=== PATIENT | female | born 1985 | race Caucasian/White ===

== ENCOUNTER → 2018-12-29 | Outpatient (CLI) | payer OTHER ==
--- NOTE | 2018-12-29 10:15 | USB ---
Reason for exam: clinical finding. History: Family history of breast cancer in maternal grandmother. Indicated problem(s): palpable abnormality in the right breast. Physical Findings: Nurse Summary: felt lump 1 week ago (nurse kp). US Breast RT Right complete breast ultrasound includes all four quadrants, the retroareolar region and axilla. Finding demonstrates a 6mm lymph node at the axilla tail. These results were verbally communicated with the patient and result sheet given to the patient on 12/29/18. ASSESSMENT: Benign, BI-RAD 2 RECOMMENDATION: Clinical management of the right breast. Manage patient on a clinical basis.
== END | disposition home or self-care (01) ==
LOC: RADUSWWP 09:24
PROVIDERS: ATTEND Pediatrics
DX: N64.4 Mastodynia (principal)

== ENCOUNTER 2019-12-15 04:47 | Emergency (ER) | payer OTHER ==
[2019-12-15 04:59] VITALS: RESP 18
[2019-12-15] MEDS ORDERED: SODIUM CHLORIDE 0.9% 500 ML 500 ML IV ONE (05:19)
--- NOTE | 2019-12-15 05:24 | ED ---
Female Urogenital HPI - General Source: patient, EMS Mode of arrival: EMS Limitations: no limitations - History of Present Illness MD Complaint: vaginal bleeding -: hour(s) Location: suprapubic Severity: moderate Quality: cramping Consistency: now resolved Improves with: none Worsens with: none Last Menstrual Period: 10/19/19 Patient : Yes Number of weeks : 9 - Related Data Sexually active: Yes : 3 Para: 2 A: 0 <Jesus Romero - Last Filed: 12/15/19 07:07> <Perry Curtis - Last Filed: 12/15/19 08:06> - General Chief complaint: Vaginal Bleeding Stated complaint: Vaginal Bleeding Time Seen by Provider: 12/15/19 04:49 - History of Present Illness Initial comments: This patient is a 34-year-old woman G3, P2, who states that she believes she is approximately 9 weeks . The patient presents to be evaluated for low abdominal cramping and vaginal bleeding. The patient states she had been feeling like her usual self until Friday evening when she noticed there was a little bit of brownish discharge when she was wiping after urination. She states that on Friday towards evening she noticed some low abdominal cramping she felt like similar to menstrual cramping. Around 7 in the evening she began having some vaginal bleeding and then there were some episodic cramps she states were somewhat reminiscent of labor-type cramping. The patient then passed some clots at home. She initially had clot the size of a baseball and then she felt lightheaded and had passing out episode. Patient states she was to see Dr. Zhou, but has not yet seen the physician or had an ultrasound. (Jesus Romero) - Related Data Allergies Allergy/AdvReac Type Severity Reaction Status Date / Time No Known Allergies Allergy Verified 12/15/19 07:27 Review of Systems ROS Other: All systems not noted in ROS Statement are negative. Constitutional: Denies: fever, chills Respiratory: Denies: cough, dyspnea Cardiovascular: Denies: chest pain, palpitations Gastrointestinal: Reports: as per HPI, abdominal pain. Denies: nausea, vomiting Genitourinary: Reports: discharge, abnormal menses. Denies: dysuria, frequency, hematuria Musculoskeletal: Denies: back pain Skin: Denies: rash Neurological: Denies: headache, weakness, numbness Hematological/Lymphatic: Denies: easy bleeding <Jesus Romero - Last Filed: 12/15/19 07:07> ROS Other: All systems not noted in ROS Statement are negative. <Perry Curtis - Last Filed: 12/15/19 08:06> ROS Statement: Those systems with pertinent positive or pertinent negative responses have been documented in the HPI. Past Medical History History of Any Multi-Drug Resistant Organisms: None Reported Past Surgical History: Tonsillectomy Past Psychological History: Anxiety, Depression Smoking Status: Never smoker Past Alcohol Use History: None Reported Past Drug Use History: None Reported <Jesus Romero - Last Filed: 12/15/19 07:07> General Exam Limitations: no limitations General appearance: alert, in no apparent distress Head exam: Present: atraumatic, normocephalic Eye exam: Present: normal appearance. Absent: scleral icterus, conjunctival injection ENT exam: Present: normal oropharynx Neck exam: Present: normal inspection Respiratory exam: Present: normal lung sounds bilaterally. Absent: respiratory distress, wheezes, rales, rhonchi, stridor Cardiovascular Exam: Present: regular rate, normal rhythm, normal heart sounds. Absent: systolic murmur, diastolic murmur, rubs, gallop GI/Abdominal exam: Present: soft. Absent: distended, tenderness, guarding, rebound, rigid, mass External exam: Present: normal external exam Speculum exam: Present: vaginal bleeding. Absent: vaginal discharge, cervical discharge, foreign body, tissue, laceration By manual exam: Absent: cervical motion tenderness, adnexal tenderness, adnexal mass, uterine enlargement, uterine tenderness Extremities exam: Present: normal inspection, normal capillary refill. Absent: pedal edema, calf tenderness Back exam: Present: normal inspection. Absent: CVA tenderness (R), CVA tenderness (L) Neurological exam: Present: alert Skin exam: Present: warm, dry, intact, normal color. Absent: rash <Jesus Romero - Last Filed: 12/15/19 07:07> Course Vital Signs 12/15/19 12/15/19 12/15/19 04:49 05:00 05:30 Temperature 98.5 F Pulse Rate 86 74 84 Respiratory 18 18 18 Rate Blood Pressure 126/97 119/74 127/84 O2 Sat by Pulse 100 98 98 Oximetry 12/15/19 12/15/19 06:00 06:15 Temperature Pulse Rate 82 81 Respiratory 18 18 Rate Blood Pressure 135/93 112/70 O2 Sat by Pulse 98 99 Oximetry Medical Decision Making - Lab Data Result diagrams: 12/15/19 04:57 12/15/19 04:57 <Jesus Romero - Last Filed: 12/15/19 07:07> - Lab Data Result diagrams: 12/15/19 04:57 12/15/19 04:57 - Radiology Data Radiology results: report reviewed (Pelvic ultrasound shows thickened heterogeneous endometrium without sac or pole. Considerationsabortion normal or ectopic or early IUP.) <Perry Curtis - Last Filed: 12/15/19 08:06> - Medical Decision Making Patient reevaluated and resting comfortably in bed, symptom free at this time. Patient states she is feeling much better. Abdomen soft and nontender. Patient updated on results and plan. Case was discussed in detail with Dr. Farfan who does request prescription for follow-up beta hCG and will follow up with patient. Prescription was written. (Perry Curtis) - Lab Data Lab Results 12/15/19 12/15/19 12/15/19 Range/Units 04:57 04:57 04:57 WBC 12.8 H (3.8-10.6) k/uL RBC 4.09 (3.80-5.40) m/uL Hgb 11.3 L (11.4-16.0) gm/dL Hct 33.5 L (34.0-46.0) % MCV 81.9 (80.0-100.0) fL MCH 27.8 (25.0-35.0) pg MCHC 33.9 (31.0-37.0) g/dL RDW 14.1 (11.5-15.5) % Plt Count 252 (150-450) k/uL Neutrophils % 85 % Lymphocytes % 10 % Monocytes % 3 % Eosinophils % 1 % Basophils % 0 % Neutrophils # 10.8 H (1.3-7.7) k/uL Lymphocytes # 1.2 (1.0-4.8) k/uL Monocytes # 0.4 (0-1.0) k/uL Eosinophils # 0.1 (0-0.7) k/uL Basophils # 0.0 (0-0.2) k/uL Sodium 130 L (137-145) mmol/L Potassium 4.1 (3.5-5.1) mmol/L Chloride 102 (98-107) mmol/L Carbon Dioxide 20 L (22-30) mmol/L Anion Gap 8 mmol/L BUN 12 (7-17) mg/dL Creatinine 0.59 (0.52-1.04) mg/dL Est GFR (CKD-EPI)AfAm >90 (>60 ml/min/1.73 sqM) Est GFR (CKD-EPI)NonAf >90 (>60 ml/min/1.73 sqM) Glucose 109 H (74-99) mg/dL Calcium 8.2 L (8.4-10.2) mg/dL Total Bilirubin 0.2 (0.2-1.3) mg/dL AST 19 (14-36) U/L ALT 11 (4-34) U/L Alkaline Phosphatase 42 (38-126) U/L Total Protein 6.2 L (6.3-8.2) g/dL Albumin 3.6 (3.5-5.0) g/dL HCG, Quant 34711.7 mIU/mL Blood Type B Negative Blood Type Recheck No Previous Record Bld Type Recheck Status CABO Indicated Antibody Screen NEGATIVE Spec Expiration Date 12/18/20192356 Disposition Is patient prescribed a controlled substance at d/c from ED?: No <Jesus Romero - Last Filed: 12/15/19 07:07> Is patient prescribed a controlled substance at d/c from ED?: No Time of Disposition: 08:05 <Perry Curtis - Last Filed: 12/15/19 08:06> Clinical Impression: Spontaneous Disposition: HOME SELF-CARE Condition: Stable Instructions (If sedation given, give patient instructions): Miscarriage (ED) Additional Instructions: Ectopic has not completely ruled out. Please follow-up with Dr. Farfan Ur Dr. Zhou in the next couple of days for recheck. You will need repeat blood check in 2 days. They will follow-up with this. Return for passing out, pelvic pain or increased bleeding, worsening symptoms or other concerns. Referrals: Tushar Baig MD [Primary Care Provider] - 1-2 days Panfilo Zhou MD [STAFF PHYSICIAN] - 1-2 days
[2019-12-15 05:35] LABS: Basophils % (A) 0 %; Eosinophils # (A) 0.1 k/uL (0-0.7); Eosinophils % (A) 1 %; HCT 33.5 % (34.0-46.0); HGB 11.3 gm/dL (11.4-16.0); Lymphocytes # (A) 1.2 k/uL (1.0-4.8); Lymphocytes % (A) 10 %; MCH 27.8 pg (25.0-35.0); MCHC 33.9 g/dL (31.0-37.0); MCV 81.9 fL (80.0-100.0); Mean Platelet Volume 7.3; Monocytes # (A) 0.4 k/uL (0-1.0); Monocytes % (A) 3 %; Neutrophils # (A) 10.8 k/uL (1.3-7.7); Neutrophils % (A) 85 %; Platelet Count 252 k/uL (150-450); RBC 4.09 m/uL (3.80-5.40); RDW 14.1 % (11.5-15.5); WBC 12.8 k/uL (3.8-10.6)
[2019-12-15 05:40] LABS: ALT 11 U/L (4-34); AST 19 U/L (14-36); African American GFR (CKD) >90 (>60 ml/min/1.73 sqM); Albumin 3.6 g/dL (3.5-5.0); Alkaline Phosphatase 42 U/L (38-126); Anion Gap 8 mmol/L; Blood Urea Nitrogen 12 mg/dL (7-17); Calcium 8.2 mg/dL (8.4-10.2); Carbon Dioxide 20 mmol/L (22-30); Chloride 102 mmol/L (98-107); Glucose 109 mg/dL (74-99); Non-African American GFR(CKD) >90 (>60 ml/min/1.73 sqM); Potassium 4.1 mmol/L (3.5-5.1); Sodium 130 mmol/L (137-145); Total Bilirubin 0.2 mg/dL (0.2-1.3); Total Protein 6.2 g/dL (6.3-8.2)
[2019-12-15 06:27] LABS: HCG,Quantitative Serum 17590.7 mIU/mL
[2019-12-15] MEDS ORDERED: Rhogam IMMUNE GLOBULIN 1,500 UNIT/1 ML IM ONE (07:05)
--- NOTE | 2019-12-15 07:42 | US ---
EXAMINATION TYPE: Transabdominal DATE OF EXAM: 12/15/2019 7:35 AM COMPARISON: NONE CLINICAL HISTORY: vaginal bleeding/pelvic pain. passing clots today, EXAM PERFORMED: OBTA EXAM MEASUREMENTS: GESTATIONAL AGE / DATING Physician Established: Not yet established Dates by LMP: (9 weeks/4 days) EDC: 07/15/2020 Dates by First Scan: No previous this is first scan Dates by Current Scan for: not seen MATERNAL ANATOMY Uterus: 11.2 x 5.8 x 5.8cm Right Ovary: 2.5 x 2.0 x 1.3cm Left Ovary: 2.8 x 3.4 x 1.7cm Post CDS / Adnexa: wnl Presence of free fluid: mild in cul-de-sac Presence of corpus luteal cyst: 1.7cm on the left Presence of subchorionic bleed: no Endometrium appears thickened and heterogenous measuring 2.9 cm. Date of LMP: 10/09/2019 Beta HcG (if available): not available IMPRESSION: Thickened heterogenous endometrium with no intrauterine gestational sac, no yolk sac, and no po le. Correlate with beta-hCG level. Primary considerations are for spontaneous or molar pregn aidan although ectopic or early intrauterine cannot be excluded given the current findings. Short-term serial serum beta hCGs are recommended with repeat pelvic ultrasound if clinical ly indicated.
[2019-12-15 08:17] VITALS: BP 117/75; PULSE 88; TEMP 98.2
== END 2019-12-15 08:16 | disposition home or self-care (01) ==
LOC: EC 04:47
DX: O03.9 Complete or unspecified spontaneous abortion without complication (principal); Z3A.09 9 weeks gestation of pregnancy
CPT/HCPCS: 36415; 86900; 86901; 80053; 85025; 86850; 84702; 76801; 99284; 96360; 96361; 96372; J2791

== ENCOUNTER → 2021-04-09 | Outpatient (CLI) | payer OTHER ==
--- NOTE | 2021-04-09 13:09 | XR ---
Right elbow HISTORY: Lateral epicondylitis Views of the right elbow Bone mineralization, joint spaces and alignment are maintained. There is no evident joint effusion. IMPRESSION: No fracture or dislocation.
== END | disposition home or self-care (01) ==
LOC: RADXRMAIN 12:23
PROVIDERS: ATTEND Pediatrics
DX: M77.11 Lateral epicondylitis, right elbow (principal)

== ENCOUNTER 2022-01-09 08:37 | Emergency (ER) | payer OTHER ==
[2022-01-09 08:46] VITALS: BP 121/75; PULSE 110; RESP 18; TEMP 98.5
[2022-01-09] MEDS ORDERED: SODIUM CHLORIDE 0.9% 1,000 ML IV STA (09:20)
--- NOTE | 2022-01-09 09:25 | ED ---
GI Bleed HPI - General Chief complaint: GI Bleed Stated complaint: blood in stool, diarrhea Time Seen by Provider: 01/09/22 08:57 Source: patient, RN notes reviewed Mode of arrival: ambulatory Limitations: no limitations - History of Present Illness Initial comments: This a 36-year-old female presents emergency Department chief complaint abdominal pain. Patient states she's felt bloated, having increasing gas, abdominal discomfort last couple days. Patient states she went of vomiting today noticed mucousy blood. Patient states that pain is actually improved but states her father's a history of colon cancer. Patient has appears or chills. Patient does take any blood thinners. Patient states she is a poor diet. Patient has no prior GI disorders. - Related Data Home Medications Medication Instructions Recorded Confirmed No Known Home Medications 01/09/22 01/09/22 Allergies Allergy/AdvReac Type Severity Reaction Status Date / Time latex Allergy Rash/Hives Verified 01/09/22 09:46 Review of Systems ROS Statement: Those systems with pertinent positive or pertinent negative responses have been documented in the HPI. ROS Other: All systems not noted in ROS Statement are negative. Past Medical History Past Medical History: No Reported History History of Any Multi-Drug Resistant Organisms: None Reported Past Surgical History: Tonsillectomy Past Psychological History: Anxiety, Depression Smoking Status: Never smoker Past Alcohol Use History: None Reported Past Drug Use History: None Reported General Exam Limitations: no limitations General appearance: alert, in no apparent distress Head exam: Present: atraumatic, normocephalic, normal inspection Eye exam: Present: normal appearance, PERRL, EOMI. Absent: scleral icterus, conjunctival injection, periorbital swelling Respiratory exam: Present: normal lung sounds bilaterally. Absent: respiratory distress, wheezes, rales, rhonchi, stridor Cardiovascular Exam: Present: regular rate, normal rhythm, normal heart sounds. Absent: systolic murmur, diastolic murmur, rubs, gallop, clicks GI/Abdominal exam: Present: soft, tenderness (Minimal), normal bowel sounds. Absent: distended, guarding, rebound, rigid Back exam: Absent: CVA tenderness (R), CVA tenderness (L) Course Vital Signs 01/09/22 08:42 Temperature 98.5 F Pulse Rate 110 H Respiratory 18 Rate Blood Pressure 121/75 O2 Sat by Pulse 97 Oximetry Medical Decision Making - Medical Decision Making 36-year-old female presented department for bleeding. CT does not reveal any specific findings for bowel patient had minimal mucousy stools. This may be related to mild colitis. Incidental findings noted on CT patient updated. Patient will be discharged in stable condition to her discussed. - Lab Data Result diagrams: 01/09/22 09:45 01/09/22 09:45 Lab Results 01/09/22 01/09/22 01/09/22 Range/Units 09:45 09:45 09:45 WBC 10.4 (3.8-10.6) k/uL RBC 5.17 (3.80-5.40) m/uL Hgb 14.0 (11.4-16.0) gm/dL Hct 43.3 (34.0-46.0) % MCV 83.8 (80.0-100.0) fL MCH 27.2 (25.0-35.0) pg MCHC 32.4 (31.0-37.0) g/dL RDW 13.5 (11.5-15.5) % Plt Count 255 (150-450) k/uL MPV 7.2 Neutrophils % 86 % Lymphocytes % 8 % Monocytes % 5 % Eosinophils % 0 % Basophils % 0 % Neutrophils # 8.9 H (1.3-7.7) k/uL Lymphocytes # 0.9 L (1.0-4.8) k/uL Monocytes # 0.5 (0-1.0) k/uL Eosinophils # 0.0 (0-0.7) k/uL Basophils # 0.0 (0-0.2) k/uL PT 10.7 (9.0-12.0) sec INR 1.0 (<1.2) APTT 23.4 (22.0-30.0) sec Sodium (137-145) mmol/L Potassium (3.5-5.1) mmol/L Chloride (98-107) mmol/L Carbon Dioxide (22-30) mmol/L Anion Gap mmol/L BUN (7-17) mg/dL Creatinine (0.52-1.04) mg/dL Est GFR (CKD-EPI)AfAm (>60 ml/min/1.73 sqM) Est GFR (CKD-EPI)NonAf (>60 ml/min/1.73 sqM) Glucose (74-99) mg/dL Calcium (8.4-10.2) mg/dL Total Bilirubin (0.2-1.3) mg/dL AST (14-36) U/L ALT (4-34) U/L Alkaline Phosphatase (38-126) U/L Total Protein (6.3-8.2) g/dL Albumin (3.5-5.0) g/dL Lipase (23-300) U/L Urine Color Light Yellow Urine Appearance Cloudy H (Clear) Urine pH 5.5 (5.0-8.0) Ur Specific [place] 1.008 (1.001-1.035) Urine Protein Negative (Negative) Urine Glucose (UA) Negative (Negative) Urine Ketones Trace H (Negative) Urine Blood Negative (Negative) Urine Nitrite Negative (Negative) Urine Bilirubin Negative (Negative) Urine Urobilinogen <2.0 (<2.0) mg/dL Ur Leukocyte Esterase Large H (Negative) Urine RBC 12 H (0-5) /hpf Urine WBC 42 H (0-5) /hpf Ur Squamous Epith Cells 17 H (0-4) /hpf Calcium Oxalate Crystal Rare H (None) /hpf Urine Bacteria Few H (None) /hpf Urine Mucus Rare H (None) /hpf Urine HCG, Qual (Not Detectd) 01/09/22 01/09/22 Range/Units 09:45 09:45 WBC (3.8-10.6) k/uL RBC (3.80-5.40) m/uL Hgb (11.4-16.0) gm/dL Hct (34.0-46.0) % MCV (80.0-100.0) fL MCH (25.0-35.0) pg MCHC (31.0-37.0) g/dL RDW (11.5-15.5) % Plt Count (150-450) k/uL MPV Neutrophils % % Lymphocytes % % Monocytes % % Eosinophils % % Basophils % % Neutrophils # (1.3-7.7) k/uL Lymphocytes # (1.0-4.8) k/uL Monocytes # (0-1.0) k/uL Eosinophils # (0-0.7) k/uL Basophils # (0-0.2) k/uL PT (9.0-12.0) sec INR (<1.2) APTT (22.0-30.0) sec Sodium 138 (137-145) mmol/L Potassium 4.3 (3.5-5.1) mmol/L Chloride 106 (98-107) mmol/L Carbon Dioxide 24 (22-30) mmol/L Anion Gap 8 mmol/L BUN 10 (7-17) mg/dL Creatinine 0.75 (0.52-1.04) mg/dL Est GFR (CKD-EPI)AfAm >90 (>60 ml/min/1.73 sqM) Est GFR (CKD-EPI)NonAf >90 (>60 ml/min/1.73 sqM) Glucose 89 (74-99) mg/dL Calcium 9.0 (8.4-10.2) mg/dL Total Bilirubin 0.6 (0.2-1.3) mg/dL AST 25 (14-36) U/L ALT 17 (4-34) U/L Alkaline Phosphatase 63 (38-126) U/L Total Protein 7.3 (6.3-8.2) g/dL Albumin 4.3 (3.5-5.0) g/dL Lipase 105 (23-300) U/L Urine Color Urine Appearance (Clear) Urine pH (5.0-8.0) Ur Specific [place] (1.001-1.035) Urine Protein (Negative) Urine Glucose (UA) (Negative) Urine Ketones (Negative) Urine Blood (Negative) Urine Nitrite (Negative) Urine Bilirubin (Negative) Urine Urobilinogen (<2.0) mg/dL Ur Leukocyte Esterase (Negative) Urine RBC (0-5) /hpf Urine WBC (0-5) /hpf Ur Squamous Epith Cells (0-4) /hpf Calcium Oxalate Crystal (None) /hpf Urine Bacteria (None) /hpf Urine Mucus (None) /hpf Urine HCG, Qual Not Detected (Not Detectd) Disposition Clinical Impression: Colitis Disposition: HOME SELF-CARE Condition: Stable Instructions (If sedation given, give patient instructions): Colitis (ED) Additional Instructions: Please return to the Emergency Department if symptoms worsen or any other concerns. Is patient prescribed a controlled substance at d/c from ED?: No Referrals: Tushar Baig MD [Primary Care Provider] - 1-2 days Teresa Manzano MD [STAFF PHYSICIAN] - 1-2 days Time of Disposition: 10:59
[2022-01-09 10:11] LABS: Basophils % (A) 0 %; Eosinophils % (A) 0 %; HCT 43.3 % (34.0-46.0); Lymphocytes # (A) 0.9 k/uL (1.0-4.8); Lymphocytes % (A) 8 %; MCH 27.2 pg (25.0-35.0); MCHC 32.4 g/dL (31.0-37.0); MCV 83.8 fL (80.0-100.0); Mean Platelet Volume 7.2; Monocytes # (A) 0.5 k/uL (0-1.0); Monocytes % (A) 5 %; Neutrophils # (A) 8.9 k/uL (1.3-7.7); Neutrophils % (A) 86 %; Platelet Count 255 k/uL (150-450); RBC 5.17 m/uL (3.80-5.40); RDW 13.5 % (11.5-15.5); WBC 10.4 k/uL (3.8-10.6)
[2022-01-09 10:27] LABS: ALT 17 U/L (4-34); AST 25 U/L (14-36); African American GFR (CKD) >90 (>60 ml/min/1.73 sqM); Albumin 4.3 g/dL (3.5-5.0); Alkaline Phosphatase 63 U/L (38-126); Anion Gap 8 mmol/L; Appearance,Urine Cloudy (Clear); Bacteria,Urine Few /hpf; Bilirubin,Urine Negative (Negative); Blood Urea Nitrogen 10 mg/dL (7-17); Blood,Urine Negative (Negative); Calcium Oxalate Crystals,Urine Rare /hpf; Carbon Dioxide 24 mmol/L (22-30); Chloride 106 mmol/L (98-107); Color,Urine Light Yellow; Glucose 89 mg/dL (74-99); Glucose,Urine (UA) Negative (Negative); Ketones,Urine Trace (Negative); Leukocyte Esterase,Urine Large (Negative); Lipase 105 U/L (23-300); Mucus,Urine Rare /hpf; Nitrite,Urine Negative (Negative); Non-African American GFR(CKD) >90 (>60 ml/min/1.73 sqM); PH, Urine 5.5 (5.0-8.0); Potassium 4.3 mmol/L (3.5-5.1); Protein,Urine Negative (Negative); RBC,Urine 12 /hpf (0-5); Sodium 138 mmol/L (137-145); Specific Gravity,Urine 1.008 (1.001-1.035); Squamous Epithelial Cell,Urine 17 /hpf (0-4); Total Bilirubin 0.6 mg/dL (0.2-1.3); Total Protein 7.3 g/dL (6.3-8.2); Urobilinogen,Urine <2.0 mg/dL (<2.0); WBC,Urine 42 /hpf (0-5)
[2022-01-09 10:33] LABS: Partial Thromboplastin Time 23.4 sec (22.0-30.0); Prothrombin Time 10.7 sec (9.0-12.0)
--- NOTE | 2022-01-09 10:54 | CT ---
EXAMINATION TYPE: CT abdomen pelvis w con DATE OF EXAM: 01/09/2022 COMPARISON: None available HISTORY: Bloody diarrhea today. CT DLP: 704.5 mGycm Automated exposure control for dose reduction was used. TECHNIQUE: Helical acquisition of images was performed from the lung bases through the pelvis. CONTRAST: Performed without Oral Contrast and with IV Contrast, patient injected with 100 mL of Isovue 300. FINDINGS: LUNG BASES: No significant abnormality is appreciated. LIVER/GB: No significant abnormality is appreciated. PANCREAS: No significant abnormality is seen. SPLEEN: No significant abnormality is seen. ADRENALS: No significant abnormality is seen. 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 Unr emarkable kidneys otherwise. FREE AIR: No free air is visualized. RETROPERITONEAL ADENOPATHY: None visualized REPRODUCTIVE ORGANS: Suspected bilateral ovarian follicles/cysts, expected for the patient's age. No gross uterine or adnexal mass. URINARY BLADDER: No significant abnormality is seen. PELVIC ADENOPATHY: None visualized. OSSEOUS STRUCTURES: No significant abnormality is seen. BOWEL: Unremarkable nondistended stomach, duodenum and small bowel. Bhkk-[id number]-[id number] fecal loading o f the colon. No gross colonic abnormality otherwise. Grossly unremarkable appendix. OTHER: 2.5 cm elongated cystic structure is seen along the inferior aspect of the vagina, incompletel y characterized and could represent a Bartholin gland cyst. Please correlate clinically. Small amount of free pelvic fluid, possibly physiological. Fat-containing umbilical hernia seen along the inferio r aspect of the umbilicus. IMPRESSION: No definite bowel abnormality identified. Small amount of free pelvic fluid, possibly physiological. Bilateral ovarian follicles/cysts, expected for the patient's age. Cystic structure is seen along the inferior aspect of the vagina close to the perineum, incompletely characterized and could represent a Bartholin gland cyst however other lesion or abscess cannot be ex cluded, please correlate clinically. Other findings as described above.
== END 2022-01-09 11:26 | disposition home or self-care (01) ==
LOC: EC 08:37
DX: K52.9 Noninfective gastroenteritis and colitis, unspecified (principal)
CPT/HCPCS: 36415; 80053; 83690; 85025; 85610; 85730; 81001; 81025; 87086; 74177; 99284; 96360; Q9967

== ENCOUNTER → 2023-07-18 | Outpatient (CLI) | payer OTHER ==
--- NOTE | 2023-07-18 08:59 | USB ---
Reason for Exam: Clinical finding. Patient History: Menarche at age 16. First Full-Term at age 22. Maternal grandmother had breast cancer. Risk Values: Ashley 5 year model risk: 0.4%. NCI Lifetime model risk: 8.3%. Technique: Method: Whole Breast Handheld. Findings: The whole breast of the right breast, the axilla of the right breast and the retroareolar of the right breast were scanned. A complete US of all four quadrants of the right breast and retro-areolar region were reviewed. Additional evaluation of the axillary tail. No solid or cystic masses are identified.. Overall Assessment: Negative, BI-RAD 1 Management: Screening Mammogram of both breasts at age 39. A clinical breast exam by your physician is recommended on an annual basis and results should be correlated with mammographic findings. This exam should not preclude additional follow-up of suspicious palpable abnormalities. Results were given to the patient verbally at the time of exam. Electronically signed and approved by: Luis Landrum D.O.
== END | disposition home or self-care (01) ==
LOC: RADUSWWP 08:28
PROVIDERS: ATTEND Pediatrics
DX: N64.4 Mastodynia (principal); Z80.3 Family history of malignant neoplasm of breast

== ENCOUNTER → 2023-11-07 | Day surgery (SDC) | payer OTHER ==
[2023-09-09 15:20] VITALS: BMI 22.9
[~2023-11-07] MED LIST: LIDOCAINE 1% INJ 10MG/ML (20 ML MDV) ONE; ONDANSETRON 4 MG/2 ML VIAL IVP PRN; PROPOFOL 10 MG/ML 20 ML VIAL IV ONE
[2023-11-07] MEDS: LIDOCAINE 1% (10MG/ML) FOR IV START INTRADERMA PRN (12:14)
[2023-11-07] MEDS: LACTATED RINGERS 1,000 ML IV SCH (12:15)
[2023-11-07 12:31] VITALS: TEMP 98.9
--- NOTE | 2023-11-07 13:45 | P.PCN ---
Date of Procedure: 11/07/23 Procedure(s) Performed: BRIEF HISTORY: Patient is a 38-year-old pleasant female scheduled for an elective colonoscopy as a part of evaluation of intermittent rectal bleeding for the last 1 year duration. Her father was done with colon cancer at age 65. PROCEDURE PERFORMED: Colonoscopy. PREOPERATIVE DIAGNOSIS: Intermittent rectal bleeding and family history of colon cancer. IV sedation per Anesthesia. PROCEDURE: After informed consent was obtained, the patient, was brought into the endoscopy unit. IV sedation was administered by Anesthesia under continuous monitoring. Digital rectal examination was normal. Initially the Olympus CF-160 flexible video colonoscope was then inserted in the rectum, gradually advanced into the cecum without any difficulty. Careful examination was performed as the scope was gradually being withdrawn. Ileocecal valve and the appendiceal orifice were visualized and appeared normal. Prep was excellent. Mucosa of the cecum, ascending colon, transverse colon, descending colon, sigmoid colon, and rectum appeared normal. Retroflexion was performed in the rectum and no lesions were seen. The patient tolerated the procedure well. IMPRESSION: Normal-appearing colon from rectum to cecum with no evidence of colitis or colorectal neoplasia. RECOMMENDATIONS: Findings of this examination were discussed with the patient as well as her family. She was advised to be a high-fiber diet and take fiber supplements a regular basis. Recommend repeat colonoscopy in 5 years because of family history of colon cancer.
[2023-11-07 14:35] VITALS: BP 124/76; PULSE 66; RESP 14
== END ==
LOC: ORWHC2ENDO 11:17
PROVIDERS: ATTEND Internal Medicine Gastroenterology
DX: Z12.11 Encounter for screening for malignant neoplasm of colon (principal); K62.5 Hemorrhage of anus and rectum; F41.9 Anxiety disorder, unspecified; F32.A Depression, unspecified; Z91.040 Latex allergy status; Z79.899 Other long term (current) drug therapy; Z80.0 Family history of malignant neoplasm of digestive organs
CPT/HCPCS: 45378; 81025